=== PATIENT | female | born 1980 | race Caucasian/White ===

== ENCOUNTER 2016-08-01 05:19 | Day surgery (SDC) | payer OTHER ==
[2016-07-31 13:50] VITALS: BMI 40.0
[2016-08-01] MEDS ORDERED: MIDAZOLAM HCL 2 MG/2 ML SINGLE DOSE VIAL ONE (10:10)
[2016-08-01] MEDS ORDERED: ONDANSETRON 4 MG/2 ML VIAL ONE (10:12)
[2016-08-01] MEDS ORDERED: DEXAMETHASONE SOD PHOSPHATE 4 MG/1 ML VIAL ONE (10:12)
[2016-08-01] MEDS ORDERED: KETOROLAC TROMETHAMINE 30 MG/1 ML VIAL ONE (10:12)
[2016-08-01] MEDS ORDERED: ceFAZolin SODIUM 1 GM VIAL ONE (10:12)
[2016-08-01] MEDS ORDERED: METRONIDAZOLE 500 MG PREMIXED 100 ML IVPB ONE ×2 (11:33→11:39)
--- NOTE | 2016-08-01 11:38 | HP ---
History & Physical Update - History History: No Change - Physical Physical: No Change - Assessment Assessment: No Change - Plan Plan: No Change
[2016-08-01] MEDS ORDERED: METRONIDAZOLE 500 MG PREMIXED 500 MG/100 ML MG IVPB ONE (11:43)
[2016-08-01] MEDS ORDERED: ONDANSETRON 4 MG/2 ML VIAL IVPUSH PRN (12:16)
[2016-08-01] MEDS ORDERED: oxyCODONE HCL 5 MG TABLET PO PRN ×2 (12:16→13:02)
[2016-08-01] MEDS ORDERED: LACTATED RINGERS SOLUTION 1,000 ML IV SCH (12:30)
[2016-08-01] MEDS ORDERED: ACETAMINOPHEN 1000 MG/100 ML VIAL (NON FORMULARY) IVPB ONE ×2 (12:51→12:52)
[2016-08-01] MEDS ORDERED: IBUPROFEN 800 MG/8 ML IJ IVPB PRN (13:02)
[2016-08-01] MEDS ORDERED: IBUPROFEN 600 MG TABLET (FP) PO PRN (13:02)
[2016-08-01] MEDS ORDERED: ONDANSETRON 4 MG/2 ML VIAL IVPB PRN (13:02)
--- NOTE | 2016-08-01 13:11 | OP ---
Operative Note - Note: Operative Date: 08/01/16 Pre-Operative Diagnosis: 35 yo P2 with Thick endometrium, suspicious of the Polyp, Menometrorrhagia Operation: Hysteroscopy, Polypectomy, Dialation, Curettage Findings: Overgrown endometrium, polypoid tissue Post-Operative Diagnosis: Same as Pre-op Surgeon: Mallory Luis Anesthesiologist/RN PERITONEAL DIALYSIS: Moo Ureña Anesthesia: MAC Specimens Removed: 1. Endometrial polyp. 2. Endometrial curettings Estimated Blood Loss (mls): 20 Drains & Tubes with Location: Urine drained 100cc Blood Volume Replaced (mls): 0 Fluid Volume Replaced (mls): 800
[2016-08-01] MEDS ORDERED: ELECTROLYTE-148 SOLN 1,000 ML IV SCH (13:15)
[2016-08-01 13:16] VITALS: PULSE 90; TEMP 98.2
[2016-08-01 16:12] VITALS: BP 105/62
--- NOTE | 2016-08-02 13:17 | OP ---
DATE OF OPERATION: 08/01/2016 PREOPERATIVE DIAGNOSIS: A 35-year-old para 2 with thick endometrium suspicious of a polyp, menometrorrhagia. OPERATION: Hysteroscopy, polypectomy, dilation and curettage. PREOPERATIVE DIAGNOSIS: A 35-year-old para 2 with thick endometrium suspicious of a polyp, menometrorrhagia. FINDINGS: Overgrown endometrium polypoid tissue. SURGEON: Mallory Luis MD ANESTHESIOLOGIST: Moo Ureña MD ANESTHESIA: MAC. SPECIMENS REMOVED: Endometrial polyp and endometrial curettings. ESTIMATED BLOOD LOSS: 20 mL. URINE DRAINED: 100 mL. FLUIDS VOLUME REPLACED: 800 mL. DESCRIPTION OF THE OPERATIVE PROCEDURE: After assuring informed consent where all risks, benefits, and alternatives were discussed with patient, patient was brought to the operating room where she was placed in dorsal lithotomy position. After she was properly identified and a time-out was called, her perineum and vagina were prepped with betadine and patient was draped in a sterile fashion. Since speculums were placed into the anterior and posterior vagina, the cervix was articulated with single-tooth tenaculum and dilated to 7 mm with increasingly larger sized thread dilators to accommodate 7 mm [facility] 30-degree hysteroscope that was introduced atraumatically into the uterus. Uterine contents consisted of overgrown endometrial lining and polypoid-like tissue. Hysteroscope was removed from the uterus, and sharp curettage gently was performed in all 4 quadrants with gauge 3 surgical curette, and small polyps were removed as well as endometrial tissue. Two specimens sent for pathology, endometrial polyps and endometrial curettings. Hysteroscope was reintroduced into the uterus, and endometrial lining was found to be appropriately and adequately curetted. Bilateral ostia were visualized. No perforation was noted. Hysteroscope was once again removed from the uterus. All other instruments were removed from the vagina. Excellent hemostasis was noted. All instrument and sponge counts were correct x2. Patient was placed back into the supine position and was extubated and brought back into the recovery room in stable condition. Natalia [id number]
--- NOTE | 2016-08-02 13:40 | PATH ---
Surgical Pathology Report Patient Name: TEVIN LOFTON [facility]. Rec. #: [id number] /Age/Gender: 1980 (Age: 35) / F Account: [id number] Location: [facility] SURGICAL Taken: 08/01/2016 Received: 08/01/2016 Reported: 08/02/2016 Physicians: Mallory Luis M.D. Specimen(s) Received A: POLYP B: ENDOMETRIAL CURETTINGS Clinical History Menorrhagia, endometrial polyp Final Diagnosis A. POLYP, POLYPECTOMY: FRAGMENTS OF DISORDERED PROLIFERATIVE AND WEAKLY PROLIFERATIVE ENDOMETRIUM WITH AREAS SUGGESTIVE OF ENDOMETRIAL POLYP. SCANT FRAGMENTS OF BENIGN SMOOTH MUSCLE. FRAGMENTS OF BENIGN ENDOCERVICAL TISSUE. B. ENDOMETRIUM, CURETTAGE: FRAGMENTS OF DYSSYNCHRONOUS ENDOMETRIUM. FRAGMENTS OF BENIGN ENDOCERVICAL TISSUE. Electronically Signed Ranjit Blevins M.D. Gross Description A. Received in formalin labeled "polyp" is a 2.3 x 1.8 x 0.3 cm aggregate of rodriguez soft tissue fragments admixed with blood-tinged mucous. The formalin is filtered and the specimen is entirely submitted in one cassette. B. Received in formalin labeled "endometrial curettings" is a 2.5 x 2.4 x 0.4 cm aggregate of rodriguez-red soft tissue fragments admixed with mucus and blood clot. The formalin is filtered and the specimen is entirely submitted in 2 cassettes. 08/01/2016 [facility]08/01/2016
== END 2016-08-01 14:45 | disposition home or self-care (01) ==
LOC: JASU-SURG 05:19
PROVIDERS: ATTEND Obstetrics & Gynecology
PROC: 0UB98ZX Excision of Uterus, Via Natural or Artificial Opening Endoscopic, Diagnostic (ICD-10-PCS; principal; 2016-08-01 10:00)
PROC: 0UDB8ZX Extraction of Endometrium, Via Natural or Artificial Opening Endoscopic, Diagnostic (ICD-10-PCS; 2016-08-01 10:00)
DX: N92.1 Excessive and frequent menstruation with irregular cycle (principal); R93.8 Abnormal findings on diagnostic imaging of other specified body structures
CPT/HCPCS: 84703; 88305-TC; 94760

== ENCOUNTER 2021-12-26 06:10 | Emergency (ER) | payer OTHER ==
[2021-12-26 06:51] VITALS: BMI 23.8
[2021-12-26] MEDS ORDERED: KETOROLAC TROMETHAMINE 30 MG/1 ML VIAL IM ONE (09:08)
[2021-12-26] MEDS ORDERED: KETOROLAC TROMETHAMINE 30 MG/1 ML VIAL ONE (09:26)
[2021-12-26 09:40] VITALS: BP 112/61; PULSE 72; RESP 20; TEMP 98.1
== END 2021-12-26 09:40 | disposition home or self-care (01) ==
LOC: JER 06:10
PROC: 3E0233Z Introduction of Anti-inflammatory into Muscle, Percutaneous Approach (ICD-10-PCS; principal; 2021-12-26)
DX: M54.32 Sciatica, left side (principal)
CPT/HCPCS: 99283-25